=== PATIENT | male | born 1965 | race Caucasian/White ===

== ENCOUNTER 2020-10-02 15:38 | Emergency (ER) | payer BC, OTHER ==
--- OUTSIDE RECORDS SUMMARY | 2020-10-02 15:40 | XMS REPORT | Continuity of Care Document ---
:1965 Author Organization [facility] t Address [address] [place] [address] Care Team Providers Name Role Phone Joe RODRIGUEZ Attending Clinician Problems This patient has no known problems. Allergies, Adverse Reactions, Alerts This patient has no known allergies or adverse reactions. Medications This patient has no known medications. Procedures This patient has no known procedures. Encounters Start End Encounter Admission Attending Care Care Encounter Source Date/Time Date/Time Type Type Clinicians Facility Department ID 2020-09-12 2020-09-12 Office FERNY Diaz [id number] 19 09:19:44 09:34:44 Visit [facility] [id number] [place] [id number] Fab[place] [id number] [place] 044 Office [address] One Results This patient has no known results.
[2020-10-02] MEDS ORDERED: cloNIDine HCL 0.1 MG TAB ONE (18:35)
[2020-10-02 18:40] LABS: Protime INR 0.95
[2020-10-02 18:49] LABS: Absolute Lymphocytes (CBC) 2.4 K/uL (0.7-4.9); Basophils % 0.9 % (0-1.3); Hematocrit 51.6 % (39.6-49.0); Lymphocytes % 26.8 % (15.3-44.8); MPV 9.5 fL (7.6-11.3); RBC Red Blood Cell Count 5.57 M/uL (4.33-5.43)
--- NOTE | 2020-10-02 18:56 | RAD REPORT ---
EXAM DESCRIPTION: CT - Head Brain Wo Cont - 10/02/2020 6:33 pm CLINICAL HISTORY: HTN, dizziness COMPARISON: <Comparisons> TECHNIQUE: Axial 5 mm thick images of the head were obtained without IV contrast. All CT scans are performed using dose optimization technique as appropriate and may include automated exposure control or mA/KV adjustment according to patient size. FINDINGS: No intracranial hemorrhage, mass, edema or shift of mid-line structures. No acute infarcti on changes seen. No abnormal extra-axial fluid collections. Ventricles are normal. Mastoid air cells and visualized portions of the paranasal sinuses are clear. No acute bony findings. IMPRESSION: Negative non-contrast CT head examination.
[2020-10-02 20:43] LABS: ALT/SGPT 41 U/L (12-78); AST/SGOT 22 U/L (15-37); Albumin 3.6 g/dL (3.4-5.0); Alkaline Phosphatase 72 U/L (45-117); BUN Blood Urea Nitrogen 17 mg/dL (7-18); Bicarbonate 25 mmol/L (21-32); Bilirubin Direct < 0.1 mg/dL (0-0.2); Bilirubin Total 0.4 mg/dL (0.2-1.0); Glucose Level 119 mg/dL (74-106); Magnesium 2.2 mg/dL (1.8-2.4); NT PRO-BNP 22 pg/mL (<125); Protein, Total 7.5 g/dL (6.4-8.2); Sodium Level 135 mmol/L (136-145); Troponin (Emerg Dept Use Only) < 0.02 ng/mL (0.0-0.045)
--- NOTE | 2020-10-02 21:02 | EDPHYS ---
Physician Documentation [facility] Name: Sushli Peraza Age: 55 yrs Sex: Male : 1965 Arrival Date: 10/02/2020 Time: 15:39 Bed 6 Private MD: ED Physician Chalo Hernadez HPI: 10/02 18:09 This 55 yrs old Male presents to ER via Ambulatory with complaints of High [facility] Blood Pressure, Dizziness. 18:09 Elevated blood pressure. Onset: The symptoms/episode began/occurred gradually, today. jmm This is a 55 year old male with a history of htn, hypothyroidism that presents to the ED with complaints of elevated blood pressure. Patient denies headache, chest pain, dysuria. . Historical: - Allergies: 16:08 Reglan; ca1 - Home Meds: 16:08 omeprazole 20 mg Oral cpDR [Active]; levothyroxine 150 mcg tab [Active]; ibuprofen 800 ca1 mg Oral tab [Active]; lisinopril 5 mg Oral tab [Active]; Benadryl Oral [Active]; testorone injection q10 days [Active]; - PMHx: 16:08 Hypertension; Hypothyroidism; ca1 - PSHx: 16:08 Knee surgery; ca1 - Immunization history:: Flu vaccine is not up to date. - Social history:: Smoking status: Patient denies any tobacco usage or history of. ROS: 18:19 Constitutional: Negative for fever, chills, and weight loss, Cardiovascular: Negative jmm for chest pain, palpitations, and edema, Respiratory: Negative for shortness of breath, cough, wheezing, and pleuritic chest pain, Neuro: Negative for headache, weakness, numbness, tingling, and seizure. 18:19 All other systems are negative. Exam: 18:19 Constitutional: This is a well developed, well nourished patient who is awake, alert, jmm and in no acute distress. Head/Face: atraumatic. Eyes: EOMI, no conjunctival erythema appreciated ENT: Moist Mucus Membranes Neck: Trachea midline, Supple Chest/axilla: Normal chest wall appearance and motion. Cardiovascular: Regular rate and rhythm. No edema appreciated Respiratory: Normal respirations, no respiratory distress appreciated Abdomen/GI: Non distended, soft Back: Normal ROM Skin: General appearance color normal MS/ Extremity: Moves all extremities, no obvious deformities appreciated, no edema noted to the lower extremities Neuro: Awake and alert, normal gait Psych: Behavior is normal, Mood is normal, Patient is cooperative and pleasant Vital Signs: 16:03 BP 155 / 105; Pulse 82; Resp 16 S; Temp 97(TE); Pulse Ox 99% on R/A; Weight 108.86 kg ca1 (R); Height 6 ft. 0 in. (182.88 cm) (R); Pain 0/10; 19:49 BP 166 / 110; Pulse 80; Resp 17; Pulse Ox 99% ; rr5 21:00 BP 155 / 103; Pulse 76; Resp 16; Pulse Ox 99% on R/A; rv 16:03 Body Mass Index 32.55 (108.86 kg, 182.88 cm) ca1 MDM: 18:06 Patient medically screened. [facility] 21:00 Data reviewed: vital signs, nurses notes. Counseling: I had a detailed discussion with [facility] the patient and/or guardian regarding: the historical points, exam findings, and any diagnostic results supporting the discharge/admit diagnosis, lab results, radiology results, the need for outpatient follow up, to return to the emergency department if symptoms worsen or persist or if there are any questions or concerns that arise at home. ED course: Patient is alert and non toxic in appearance in the ED. No signs of resp distress. No focal deficits. Patient is advised to follow up with pcp for bp maintenance. Patient understood and agrees with the plan of care. . 10/02 17:56 Order name: Basic Metabolic Panel [facility] 10/02 17:56 Order name: CBC with Diff [facility] 10/02 17:56 Order name: LFT's [facility] 10/02 17:56 Order name: Magnesium; Complete Time: 21:00 [facility] 10/02 17:56 Order name: NT PRO-BNP; Complete Time: 21:00 [facility] 10/02 17:56 Order name: PT-INR; Complete Time: 19:01 [facility] 10/02 17:56 Order name: Troponin (emerg Dept Use Only); Complete Time: 21:00 [facility] 10/02 17:56 Order name: EKG; Complete Time: 17:57 [facility] 10/02 17:57 Order name: Basic Metabolic Panel; Complete Time: 21:00 [facility] 10/02 17:57 Order name: CBC with Automated Diff; Complete Time: 19:01 [facility] 10/02 17:57 Order name: Liver (Hepatic) Function; Complete Time: 21:00 [facility] 10/02 18:08 Order name: CT Head Brain wo Cont; Complete Time: 19:01 [facility] 10/02 17:56 Order name: Cardiac monitoring; Complete Time: 18:35 [facility] 10/02 17:56 Order name: EKG - Nurse/Tech; Complete Time: 18:20 [facility] 10/02 17:56 Order name: IV Saline Lock; Complete Time: 18:35 [facility] 10/02 17:56 Order name: Labs collected and sent; Complete Time: 18:34 [facility] 10/02 17:56 Order name: O2 Per Protocol; Complete Time: 18:34 [facility] 10/02 17:56 Order name: O2 Sat Monitoring; Complete Time: 18:34 [facility] Administered Medications: 18:15 Drug: cloNIDine 0.1 mg Route: PO; bp 18:35 Follow up: Response: No adverse reaction bp 21:15 Drug: Lisinopril 5 mg Route: PO; rv 21:27 Follow up: Response: Medication administered at discharge. rv Disposition: 10/03 16:53 Co-signature as Attending Physician, Chalo Hernadez MD. rn Disposition: 10/02/20 21:02 Discharged to Home. Impression: Elevated Blood Pressure. - Condition is Stable. - Discharge Instructions: Hypertension. - Medication Reconciliation Form, Thank You Letter, Antibiotic Education, Prescription Opioid Use form. - Follow up: Private Physician; When: 2 - 3 days; Reason: Recheck today's complaints, Continuance of care, Re-evaluation by your physician. Signatures: Dispatcher [employer] [facility] Raghu Gonzalez PA PA [facility] Chalo Hernadez MD MD rn Peltier, Brian, RN RN bp Kannan Valenzuela RN RN rv Lissa Stone RN RN ca1 Corrections: (The following items were deleted from the chart) 10/02 18:20 18:09 This is a 55 year old male with a history of htn, hypothyroidism that presents to [facility] the ED with cm. [facility] 21:28 21:02 10/02/2020 21:02 Discharged to Home. Impression: Elevated Blood Pressure. rv Condition is Stable. Forms are Medication Reconciliation Form, Thank You Letter, Antibiotic Education, Prescription Opioid Use. Follow up: Private Physician; When: 2 - 3 days; Reason: Recheck today's complaints, Continuance of care, Re-evaluation by your physician. shar
--- NOTE | 2020-10-02 21:02 | ER ---
Nurse's Notes [facility] Name: Sushil Peraza Age: 55 yrs Sex: Male : 1965 Arrival Date: 10/02/2020 Time: 15:39 Bed 6 Private MD: Diagnosis: Elevated Blood Pressure Presentation: 10/02 16:03 Chief complaint: Patient states: Was feeling very anxious and lightheaded. BP at ca1 180/115 at home. Coronavirus screen: Client denies travel out of the [place] in the last 14 days. At this time, the client does not indicate any symptoms associated with coronavirus-19. Ebola Screen: Patient negative for fever greater than or equal to 101.5 degrees Fahrenheit, and additional compatible Ebola Virus Disease symptoms Patient denies exposure to infectious person. Patient denies travel to an Ebola-affected area in the 21 days before illness onset. No symptoms or risks identified at this time. Initial Sepsis Screen: Does the patient meet any 2 criteria? No. Patient's initial sepsis screen is negative. Does the patient have a suspected source of infection? No. Patient's initial sepsis screen is negative. Risk Assessment: Do you want to hurt yourself or someone else? Patient reports no desire to harm self or others. Onset of symptoms was October 02, 2020. 16:03 Method Of Arrival: Ambulatory ca1 16:03 Acuity: GREY 3 ca1 Triage Assessment: 17:53 General: Appears in no apparent distress. comfortable, Behavior is cooperative, bp appropriate for age, anxious. Pain: Denies pain. EENT: No deficits noted. Neuro: Level of Consciousness is awake, alert, obeys commands, Oriented to person, place, time, situation, Appropriate for age. Cardiovascular: No deficits noted. Respiratory: No deficits noted. GI: No signs and/or symptoms were reported involving the gastrointestinal system. : No signs and/or symptoms were reported regarding the genitourinary system. Derm: No deficits noted. Musculoskeletal: No deficits noted. Historical: - Allergies: 16:08 Reglan; ca1 - Home Meds: 16:08 omeprazole 20 mg Oral cpDR [Active]; levothyroxine 150 mcg tab [Active]; ibuprofen 800 ca1 mg Oral tab [Active]; lisinopril 5 mg Oral tab [Active]; Benadryl Oral [Active]; testorone injection q10 days [Active]; - PMHx: 16:08 Hypertension; Hypothyroidism; ca1 - PSHx: 16:08 Knee surgery; ca1 - Immunization history:: Flu vaccine is not up to date. - Social history:: Smoking status: Patient denies any tobacco usage or history of. Screenin:55 Abuse screen: Denies threats or abuse. Denies injuries from another. Nutritional bp screening: No deficits noted. Tuberculosis screening: No symptoms or risk factors identified. Fall Risk None identified. Assessment: 17:54 General: SEE TRIAGE NOTE. bp Vital Signs: 16:03 BP 155 / 105; Pulse 82; Resp 16 S; Temp 97(TE); Pulse Ox 99% on R/A; Weight 108.86 kg ca1 (R); Height 6 ft. 0 in. (182.88 cm) (R); Pain 0/10; 19:49 BP 166 / 110; Pulse 80; Resp 17; Pulse Ox 99% ; rr5 21:00 BP 155 / 103; Pulse 76; Resp 16; Pulse Ox 99% on R/A; rv 16:03 Body Mass Index 32.55 (108.86 kg, 182.88 cm) ca1 ED Course: 15:39 Patient arrived in ED. as 16:05 Triage completed. ca1 16:08 Arm band placed on right wrist. ca1 17:51 Raghu Gonzalez PA is PHCP. [facility] 17:51 Chalo Hernadez MD is Attending Physician. jmm 17:52 Cj Donnelly, RN is Primary Nurse. bp 17:55 Patient has correct armband on for positive identification. Bed in low position. Call bp light in reach. Side rails up X2. 18:21 EKG done, by ED staff, reviewed by Raghu FIGUEROA. em1 18:32 CT Head Brain wo Cont In Process Unspecified. EDMS 20:16 Lab(s) recollected, by me, sent to lab. rv 21:27 No provider procedures requiring assistance completed. IV discontinued, intact, rv bleeding controlled, No redness/swelling at site. Pressure dressing applied. Administered Medications: 18:15 Drug: cloNIDine 0.1 mg Route: PO; bp 18:35 Follow up: Response: No adverse reaction bp 21:15 Drug: Lisinopril 5 mg Route: PO; rv 21:27 Follow up: Response: Medication administered at discharge. rv Outcome: 21:02 Discharge ordered by MD. myles 21:27 Discharged to home ambulatory. rv 21:27 Condition: good 21:27 Discharge instructions given to patient, Instructed on discharge instructions, follow up and referral plans. Demonstrated understanding of instructions, follow-up care. 21:28 Patient left the ED. rv Signatures: Dispatcher [employer] EDMS Raghu Gonzalez PA PA jmm Martinez, Amelia as Martinez, Eric em1 Cj Donnelly, RN RN Kannan Brantley, RN RN rv Suhas Keane, RN RN rr5 Lissa Stone RN RN ca1
[2020-10-02] MEDS ORDERED: lisinopriL 5 MG TAB ONE (21:18)
[2020-10-02 21:37] VITALS: O2SAT 99
[2020-10-02 21:38] VITALS: TEMP 97
[2020-10-02 21:39] VITALS: BP 155/103
== END 2020-10-02 21:28 | disposition home or self-care (01) ==
LOC: ER 15:38
DX: I10 Essential (primary) hypertension (principal); E03.9 Hypothyroidism, unspecified; Z88.8 Allergy status to other drugs, medicaments and biological substances
CPT/HCPCS: 36415; 70450; 80048; 80076; 83735; 83880; 84484; 85025; 85610; 99284